=== PATIENT | female | born 1935 | race African-American/Black ===

== ENCOUNTER 2016-12-29 12:06 | Inpatient (IN) | payer MEDICARE ==
[~2016-12-29] VITALS: Ht 152.4 cm; Wt 46.5 kg
[2016-12-29 12:30] VITALS: BP 118/43
[2016-12-29] MEDS ORDERED: GUAIFENESIN 200MG/10ML SUGAR FREE UDC PO PRN ×2 (14:00→18:45)
[2016-12-29] MEDS ORDERED: ACETAMINOPHEN 325MG TABLET PO PRN (14:00)
[2016-12-29 16:00] VITALS: BP 124/44
[2016-12-29] MEDS: IPRATROPIUM/ALBUTEROL 0.5-3(2.5)MG/3ML NEB HHN SCH ×2 (16:34→21:36)
[2016-12-29] MEDS: MULTIVITAMINS,THER W-MINERALS TABLET PO SCH (17:39)
[2016-12-29] MEDS: CEFTRIAXONE 1 G PREMIX 50 ML IV SCH (17:39)
[2016-12-29 17:47] LABS: BASOPHILS % 0.8 % (0.0-2.0); EOSINOPHILS % 1.2 % (0.0-5.0); HEMATOCRIT. 26.3 % (36.0-48.0); HEMOGLOBIN. 8.3 g/dL (12.0-16.0); LYMPHOCYTES % 12.4 % (20.0-50.0); MEAN CORPUSCULAR HEMOGLOBIN 24.5 pg (28.0-32.0); MEAN CORPUSCULAR VOLUME 77.9 fL (81.0-99.0); MONOCYTES % 8.9 % (2.0-8.0); NEUTROPHILS % 76.7 % (40.0-76.0); PLATELET 374 x1000/uL (130-400); RED BLOOD CELL COUNT 3.37 mill/uL (4.2-5.4); RED CELL DISTRIBUTION WIDTH 17.9 % (11.6-14.6)
[2016-12-29 17:53] LABS: INR 1.1; PROTHROMBIN TIME 11.2 sec
[2016-12-29 18:08] LABS: CARBON DIOXIDE 21 mEq/L (21-32); CHLORIDE 110 mEq/L (98-107)
[2016-12-29] MEDS: AZITHROMYCIN 500 MG in DEXT 5% WATER 250 ML IV SCH (18:43)
[2016-12-29 19:10] LABS: TOTAL IRON BINDING CAPACITY 167 ug/dL (250-450)
[2016-12-29 20:00] VITALS: BP 110/54
[2016-12-29] MEDS: MIRTAZAPINE 15MG TABLET PO SCH (21:50)
[2016-12-29] MEDS: MEMANTINE HCL 10MG TABLET PO SCH (21:50)
[2016-12-29] MEDS: SODIUM CHLORIDE 0.45% 1,000 ML IV SCH (22:04)
[2016-12-30] VITALS (8 sets, daily range): BP systolic 110–152; BP diastolic 40–59
[2016-12-30] MEDS: IPRATROPIUM/ALBUTEROL 0.5-3(2.5)MG/3ML NEB HHN SCH ×6 (00:58→21:11)
[2016-12-30 06:53] LABS: BASOPHILS % 0.2 % (0.0-2.0); EOSINOPHILS % 1.2 % (0.0-5.0); HEMATOCRIT. 23.4 % (36.0-48.0); HEMOGLOBIN. 7.3 g/dL (12.0-16.0); LYMPHOCYTES % 13.4 % (20.0-50.0); MEAN CORPUSCULAR HEMOGLOBIN 24.5 pg (28.0-32.0); MEAN PLATELET VOLUME 8.8 fl (7.4-10.4); MONOCYTES % 10.4 % (2.0-8.0); NEUTROPHILS % 74.8 % (40.0-76.0); PLATELET 346 x1000/uL (130-400); RED BLOOD CELL COUNT 2.99 mill/uL (4.2-5.4); RED CELL DISTRIBUTION WIDTH 17.4 % (11.6-14.6)
[2016-12-30 07:56] LABS: BG BASE EXCESS -5.3 mmol/L (-2.0-2.0); BG CARBOXYHEMOGLOBIN 0.8 % (0.5-1.5); BG DEOXYHEMOGLOBIN 12.9 % (0.0-5.0); BG FRACTION INSPIRED OXYGEN 21; BG HCO3 ACT 20.1 mmol/L (22.0-26.0); BG METHEMOGLOBIN 0.4 % (0.0-1.5); BG OXYGEN SATURATION 86.9 % (92.0-98.5); BG OXYHEMOGLOBIN 85.9 % (94.0-97.0); BG PH 7.331 (7.350-7.450); BG PO2 54.8 mmHg (75.0-100.0); BG SAMPLE SITE RIGHT BRACHIAL; BG TOTAL HEMOGLOBIN 8.4 g/dL (12.0-18.0); BG VENT MODE ROOM AIR
[2016-12-30] MEDS ORDERED: AMLO1TAB12 PO ×2 (08:16→08:30)
[2016-12-30] MEDS ORDERED: MONT5TAB11 PO (08:30)
[2016-12-30] MEDS ORDERED: ASPI-1159 PO (08:30)
[2016-12-30] MEDS ORDERED: MEMA10TA11 PO (08:30)
[2016-12-30] MEDS ORDERED: MIRT-91 PO (08:30)
[2016-12-30] MEDS ORDERED: GUAI120015 PO (08:30)
[2016-12-30] MEDS ORDERED: MAALOX (08:30)
[2016-12-30] MEDS ORDERED: ACET-2178 PO (08:30)
[2016-12-30] MEDS ORDERED: AZIT250T6 PO (08:30)
[2016-12-30] MEDS ORDERED: BENZ100C86 PO (08:30)
[2016-12-30] MEDS ORDERED: MULT-348 PO (08:30)
[2016-12-30] MEDS ORDERED: ENOXAPARIN 30MG/0.3ML SYR SUBCUT SCH (09:00)
[2016-12-30 09:15] LABS: HEMATOCRIT 25.2 % (36.0-48.0); HEMOGLOBIN 7.9 g/dL (12.0-16.0)
[2016-12-30 09:31] LABS: CLARITY URINE CLOUDY (CLEAR); COLOR URINE YELLOW (YELLOW); GLUCOSE URINE NEGATIVE (NEGATIVE); KETONES URINE NEGATIVE (NEGATIVE); LEUKOCYTE ESTERASE URINE 2+ (NEGATIVE); NITRITE URINE NEGATIVE (NEGATIVE); OCCULT BLOOD URINE NEGATIVE (NEGATIVE); PROTEIN URINE TRACE (NEGATIVE); SPECIFIC GRAVITY URINE 1.017 (1.005-1.030); UROBILINOGEN URINE 0.2 E.U./dL (0.2-1.0)
[2016-12-30] MEDS: DOCUSATE SODIUM 250MG CAPSULE PO SCH (10:21)
[2016-12-30] MEDS: MULTIVITAMINS,THER W-MINERALS TABLET PO SCH (10:21)
[2016-12-30] MEDS: MEMANTINE HCL 10MG TABLET PO SCH ×2 (10:21→20:57)
[2016-12-30] MEDS: DONEPEZIL HCL 10MG TABLET PO SCH (10:21)
[2016-12-30] MEDS: AMLODIPINE 10MG TABLET PO SCH (10:23)
[2016-12-30] MEDS: PANTOPRAZOLE SODIUM 40 MG/VIAL IV SCH (10:28)
[2016-12-30] MEDS ORDERED: CEFTRIAXONE 1 G PREMIX 50 ML IV SCH (14:30)
[2016-12-30] MEDS: CEFTRIAXONE 1 G PREMIX 50 ML IV SCH (16:14)
[2016-12-30] MEDS: AZITHROMYCIN 500 MG in DEXT 5% WATER 250 ML IV SCH (16:22)
[2016-12-30] MEDS ORDERED: MONTELUKAST SODIUM 10MG TABLET PO SCH (17:00)
[2016-12-30 17:22] LABS: VITAMIN B12 SERUM 558 pg/mL (211-911)
[2016-12-30 17:26] LABS: FOLIC ACID (FOLATE) SERUM > 20.00 ng/mL (>5.38)
[2016-12-30 17:46] LABS: FERRITIN 291 ng/mL (10-291)
[2016-12-30] MEDS: SODIUM CHLORIDE 0.45% 1,000 ML IV SCH (19:07)
[2016-12-30] MEDS: MIRTAZAPINE 15MG TABLET PO SCH (20:57)
[2016-12-30] MEDS: GUAIFENESIN 600MG ER TABLET PO SCH (21:01)
[2016-12-31] VITALS (13 sets, daily range): BP systolic 99–153; BP diastolic 39–69
[2016-12-31] MEDS: IPRATROPIUM/ALBUTEROL 0.5-3(2.5)MG/3ML NEB HHN SCH ×7 (02:16→23:48)
[2016-12-31 06:59] LABS: BASOPHILS % 0.3 % (0.0-2.0); HEMOGLOBIN. 10.1 g/dL (12.0-16.0); LYMPHOCYTES % 9.2 % (20.0-50.0); MEAN CORPUSCULAR HEMOGLOBIN 25.6 pg (28.0-32.0); MEAN CORPUSCULAR VOLUME 78.9 fL (81.0-99.0); MEAN PLATELET VOLUME 8.7 fl (7.4-10.4); MONOCYTES % 10.1 % (2.0-8.0); NEUTROPHILS % 79.4 % (40.0-76.0); PLATELET 298 x1000/uL (130-400); RED BLOOD CELL COUNT 3.93 mill/uL (4.2-5.4); RED CELL DISTRIBUTION WIDTH 16.7 % (11.6-14.6)
[2016-12-31] MEDS: PANTOPRAZOLE SODIUM 40 MG/VIAL IV SCH (08:40)
[2016-12-31] MEDS: DOCUSATE SODIUM 250MG CAPSULE PO SCH (08:50)
[2016-12-31] MEDS: MEMANTINE HCL 10MG TABLET PO SCH ×2 (08:50→22:12)
[2016-12-31] MEDS: DONEPEZIL HCL 10MG TABLET PO SCH (08:50)
[2016-12-31] MEDS: MULTIVITAMINS,THER W-MINERALS TABLET PO SCH (08:51)
[2016-12-31] MEDS: GUAIFENESIN 600MG ER TABLET PO SCH ×2 (08:51→22:12)
[2016-12-31] MEDS: AMLODIPINE 10MG TABLET PO SCH (09:00)
[2016-12-31 10:29] LABS: HEMATOCRIT 34.6 % (36.0-48.0)
[2016-12-31] MEDS: QUETIAPINE FUMARATE 25MG TABLET PO SCH (11:57)
[2016-12-31] MEDS ORDERED: FLUCONAZOLE 400MG/200ML BAG 200 ML IV NR (14:00)
[2016-12-31] MEDS: CEFTRIAXONE 1 G PREMIX 50 ML IV SCH (15:15)
[2016-12-31] MEDS ORDERED: AZITHROMYCIN 500 MG TABLET PO SCH (16:00)
[2016-12-31] MEDS: MIRTAZAPINE 15MG TABLET PO SCH (22:12)
[2017-01-01] VITALS: BP_SYST 117; BP_SYST 151; BP_DIAS 58; BP_DIAS 65
[2017-01-01] MEDS: IPRATROPIUM/ALBUTEROL 0.5-3(2.5)MG/3ML NEB HHN SCH ×4 (03:22→21:12)
[2017-01-01 04:00] VITALS: BP 152/65
[2017-01-01] MEDS: SODIUM CHLORIDE 0.45% 1,000 ML IV SCH (05:30)
[2017-01-01 06:59] LABS: HEMATOCRIT. 37.1 % (36.0-48.0); MEAN CORPUSCULAR HEMOGLOBIN 25.7 pg (28.0-32.0); MEAN CORPUSCULAR VOLUME 79.5 fL (81.0-99.0); MEAN PLATELET VOLUME 9.2 fl (7.4-10.4); PLATELET 332 x1000/uL (130-400); RED BLOOD CELL COUNT 4.67 mill/uL (4.2-5.4)
[2017-01-01] MEDS: MEMANTINE HCL 10MG TABLET PO SCH ×2 (08:53→21:00)
[2017-01-01] MEDS: FAMOTIDINE 20MG TABLET PO SCH (08:53)
[2017-01-01] MEDS: AMLODIPINE 10MG TABLET PO SCH (08:54)
[2017-01-01] MEDS: DONEPEZIL HCL 10MG TABLET PO SCH (08:54)
[2017-01-01] MEDS: QUETIAPINE FUMARATE 25MG TABLET PO SCH (08:55)
[2017-01-01] MEDS: GUAIFENESIN 600MG ER TABLET PO SCH ×2 (08:55→21:00)
[2017-01-01] MEDS: DOCUSATE SODIUM 250MG CAPSULE PO SCH (08:56)
[2017-01-01] MEDS ORDERED: DIATR MEGLU/DIATRIZOATE SOLN 30ML PO SCH (10:15)
[2017-01-01] MEDS ORDERED: SODIUM CHLORIDE 0.45% 1,000 ML IV SCH (10:15)
[2017-01-01] MEDS ORDERED: FUROSEMIDE 20MG/2ML VIAL IVP SCH (10:45)
[2017-01-01 11:57] LABS: PLATELET ESTIMATE NORMAL
[2017-01-01] MEDS ORDERED: FLUCONAZOLE 200 MG/100ML BAG 100 ML IV SCH (14:00)
[2017-01-01 16:00] VITALS: BP 137/65
[2017-01-01] MEDS: LEVOFLOXACIN 500MG PREMIX 100 ML IV SCH (16:36)
[2017-01-01] MEDS: PIPERACILLIN/TAZOBACTAM 3.375 G in DEXT 5% WATER 100 ML IV SCH (17:23)
[2017-01-01 20:00] VITALS: BP 125/60
[2017-01-01 20:42] VITALS: BP 125/60
[2017-01-01] MEDS: MIRTAZAPINE 15MG TABLET PO SCH (21:00)
[2017-01-02] VITALS: BP 151/65
[2017-01-02] MEDS: IPRATROPIUM/ALBUTEROL 0.5-3(2.5)MG/3ML NEB HHN SCH ×5 (01:05→20:30)
[2017-01-02 04:00] VITALS: BP 112/61
[2017-01-02] MEDS: PIPERACILLIN/TAZOBACTAM 3.375 G in DEXT 5% WATER 100 ML IV SCH ×3 (05:40)
[2017-01-02 07:27] LABS: BASOPHILS % 0.4 % (0.0-2.0); EOSINOPHILS % 0.7 % (0.0-5.0); HEMATOCRIT. 35.7 % (36.0-48.0); HEMOGLOBIN. 11.5 g/dL (12.0-16.0); LYMPHOCYTES % 7.9 % (20.0-50.0); MEAN CORPUSCULAR HEMOGLOBIN 25.7 pg (28.0-32.0); MEAN CORPUSCULAR VOLUME 79.8 fL (81.0-99.0); MEAN PLATELET VOLUME 9.2 fl (7.4-10.4); MONOCYTES % 9.2 % (2.0-8.0); NEUTROPHILS % 81.8 % (40.0-76.0); PLATELET 311 x1000/uL (130-400); RED BLOOD CELL COUNT 4.47 mill/uL (4.2-5.4)
[2017-01-02 08:00] VITALS: BP 124/49
[2017-01-02] MEDS: DEXT 5%/0.45% NACL 1000ML 1,000 ML IV SCH ×2 (08:49→23:31)
[2017-01-02] MEDS: AMLODIPINE 10MG TABLET PO SCH (09:00)
[2017-01-02] MEDS ORDERED: LACTULOSE 20G/30ML UDC PO SCH (09:15)
[2017-01-02] MEDS: FAMOTIDINE 20MG TABLET PO SCH (10:01)
[2017-01-02] MEDS: QUETIAPINE FUMARATE 25MG TABLET PO SCH (10:01)
[2017-01-02] MEDS: DONEPEZIL HCL 10MG TABLET PO SCH (10:01)
[2017-01-02] MEDS: GUAIFENESIN 600MG ER TABLET PO SCH ×2 (10:02→21:54)
[2017-01-02] MEDS: MEMANTINE HCL 10MG TABLET PO SCH ×2 (10:02→21:53)
[2017-01-02] MEDS: DOCUSATE SODIUM 250MG CAPSULE PO SCH (10:45)
[2017-01-02] MEDS ORDERED: PIPERACILLIN/TAZ 3.375G PREMIX 50 ML IV SCH (12:00)
[2017-01-02 12:01] VITALS: BP 97/43
[2017-01-02] MEDS: SULFACETAMIDE SODIUM 10% OPHTH DROPS 15ML BOTHEYE SCH ×3 (12:53→21:53)
[2017-01-02 15:58] VITALS: BP 102/44
[2017-01-02 16:49] LABS: CARCINO EMBRYONIC ANTIGEN 87.6 ng/ml
[2017-01-02 17:15] LABS: PROSTRATE SPECIFIC AG TOTAL 0.02 ng/mL
[2017-01-02] MEDS: PIPERACILLIN/TAZ 2.25G PREMIX 50 ML IV SCH ×2 (18:08→23:30)
[2017-01-02 20:00] VITALS: BP 118/49
[2017-01-02] MEDS: MIRTAZAPINE 15MG TABLET PO SCH (21:53)
[2017-01-03] VITALS: BP 112/60
[2017-01-03] MEDS: IPRATROPIUM/ALBUTEROL 0.5-3(2.5)MG/3ML NEB HHN SCH ×6 (01:26→23:47)
[2017-01-03 04:00] VITALS: BP 102/49
[2017-01-03] MEDS: PIPERACILLIN/TAZ 2.25G PREMIX 50 ML IV SCH ×3 (05:00→19:37)
[2017-01-03 06:54] LABS: BASOPHILS % 0.3 % (0.0-2.0); EOSINOPHILS % 1.7 % (0.0-5.0); HEMATOCRIT. 32.5 % (36.0-48.0); HEMOGLOBIN. 10.4 g/dL (12.0-16.0); LYMPHOCYTES % 7.4 % (20.0-50.0); MEAN CORPUSCULAR HEMOGLOBIN 25.5 pg (28.0-32.0); MEAN CORPUSCULAR VOLUME 79.8 fL (81.0-99.0); MEAN PLATELET VOLUME 9.1 fl (7.4-10.4); MONOCYTES % 11.6 % (2.0-8.0); PLATELET 282 x1000/uL (130-400); RED BLOOD CELL COUNT 4.07 mill/uL (4.2-5.4); RED CELL DISTRIBUTION WIDTH 17.3 % (11.6-14.6)
[2017-01-03 08:00] VITALS: BP 112/48
[2017-01-03] MEDS: SULFACETAMIDE SODIUM 10% OPHTH DROPS 15ML BOTHEYE SCH ×4 (08:49→20:28)
[2017-01-03 08:50] LABS: IMMUNOGLOBULIN A 381 mg/dL (64-422); IMMUNOGLOBULIN G 1912 mg/dL (700-1600); IMMUNOGLOBULIN M 44 mg/dL (26-217)
[2017-01-03] MEDS: DONEPEZIL HCL 10MG TABLET PO SCH (08:50)
[2017-01-03] MEDS: FAMOTIDINE 20MG TABLET PO SCH (08:50)
[2017-01-03] MEDS: GUAIFENESIN 600MG ER TABLET PO SCH ×2 (08:50→20:20)
[2017-01-03] MEDS: MEMANTINE HCL 10MG TABLET PO SCH ×2 (08:50→20:20)
[2017-01-03] MEDS: QUETIAPINE FUMARATE 25MG TABLET PO SCH (08:51)
[2017-01-03] MEDS: LEVOFLOXACIN 500MG PREMIX 100 ML IV SCH (08:52)
[2017-01-03] MEDS: AMLODIPINE 10MG TABLET PO SCH (08:53)
[2017-01-03] MEDS: DOCUSATE SODIUM 250MG CAPSULE PO SCH (08:53)
[2017-01-03 12:00] VITALS: BP 97/39
[2017-01-03] MEDS: DEXT 5%/0.9% NACL 1,000 ML IV SCH (12:31)
[2017-01-03] MEDS ORDERED: MAGNESIUM 2 G PREMIX 50 ML IV SCH (14:00)
[2017-01-03] MEDS ORDERED: SODIUM CHLORIDE 0.9% 10ML VIAL ONE (14:23)
[2017-01-03] MEDS ORDERED: SODIUM BICARBONATE 4% (2.4MEQ) 5ML VIAL IV ONE (14:23)
[2017-01-03] MEDS ORDERED: LIDOCAINE HCL 1% 20ML VIAL (Pyxis) INJ ONE (14:23)
[2017-01-03 16:00] VITALS: BP 116/43
[2017-01-03 20:00] VITALS: BP_SYST 112; BP_SYST 124; BP_DIAS 51; BP_DIAS 63
[2017-01-03] MEDS: MIRTAZAPINE 15MG TABLET PO SCH (20:20)
[2017-01-04] VITALS: BP 124/63
[2017-01-04] MEDS: PIPERACILLIN/TAZ 2.25G PREMIX 50 ML IV SCH ×4 (00:09→19:10)
[2017-01-04] MEDS: IPRATROPIUM/ALBUTEROL 0.5-3(2.5)MG/3ML NEB HHN SCH ×5 (03:37→20:44)
[2017-01-04 04:00] VITALS: BP 126/60
[2017-01-04] MEDS: DEXT 5%/0.9% NACL 1,000 ML IV SCH ×3 (05:40→22:24)
[2017-01-04 06:23] LABS: HEMATOCRIT. 30.9 % (36.0-48.0); HEMOGLOBIN. 10.1 g/dL (12.0-16.0); MEAN CORPUSCULAR VOLUME 79.9 fL (81.0-99.0); MEAN PLATELET VOLUME 8.9 fl (7.4-10.4); PLATELET 268 x1000/uL (130-400); RED BLOOD CELL COUNT 3.87 mill/uL (4.2-5.4); RED CELL DISTRIBUTION WIDTH 17.2 % (11.6-14.6)
[2017-01-04 08:00] VITALS: BP 117/53
[2017-01-04 09:07] LABS: PLATELET ESTIMATE NORMAL
[2017-01-04] MEDS: DONEPEZIL HCL 10MG TABLET PO SCH (09:08)
[2017-01-04] MEDS: DOCUSATE SODIUM 250MG CAPSULE PO SCH (09:09)
[2017-01-04] MEDS: MEMANTINE HCL 10MG TABLET PO SCH ×2 (09:09→20:07)
[2017-01-04] MEDS: FAMOTIDINE 20MG TABLET PO SCH (09:09)
[2017-01-04] MEDS: QUETIAPINE FUMARATE 25MG TABLET PO SCH (09:09)
[2017-01-04] MEDS: GUAIFENESIN 600MG ER TABLET PO SCH ×2 (09:09→20:07)
[2017-01-04] MEDS: SULFACETAMIDE SODIUM 10% OPHTH DROPS 15ML BOTHEYE SCH ×4 (09:11→20:07)
[2017-01-04] MEDS: AMLODIPINE 10MG TABLET PO SCH (09:23)
[2017-01-04 12:00] VITALS: BP 86/40
[2017-01-04 13:11] LABS: HGB A 97.7 % (94.0-98.0); HGB A2 2.3 % (0.7-3.1); HGB SOLUBILITY Negative (Negative)
[2017-01-04] MEDS ORDERED: SODIUM BICARBONATE 4% (2.4MEQ) 5ML VIAL IV ONE (14:27)
[2017-01-04 16:00] VITALS: BP 118/53
[2017-01-04 20:00] VITALS: BP 115/58
[2017-01-04] MEDS: MIRTAZAPINE 15MG TABLET PO SCH (20:07)
[2017-01-05] VITALS: BP 112/58
[2017-01-05] MEDS: PIPERACILLIN/TAZ 2.25G PREMIX 50 ML IV SCH ×4 (00:16→17:31)
[2017-01-05] MEDS: IPRATROPIUM/ALBUTEROL 0.5-3(2.5)MG/3ML NEB HHN SCH ×7 (00:36→23:59)
[2017-01-05 04:00] VITALS: BP 131/65
[2017-01-05 07:16] LABS: HEMATOCRIT. 25.3 % (36.0-48.0); MEAN CORPUSCULAR HEMOGLOBIN 25.6 pg (28.0-32.0); MEAN CORPUSCULAR VOLUME 80.5 fL (81.0-99.0); MEAN PLATELET VOLUME 9.3 fl (7.4-10.4); PLATELET 288 x1000/uL (130-400); RED BLOOD CELL COUNT 3.14 mill/uL (4.2-5.4); RED CELL DISTRIBUTION WIDTH 17.1 % (11.6-14.6)
[2017-01-05 08:00] VITALS: BP 118/57
[2017-01-05] MEDS: SULFACETAMIDE SODIUM 10% OPHTH DROPS 15ML BOTHEYE SCH ×4 (08:53→21:50)
[2017-01-05] MEDS: LEVOFLOXACIN 500MG PREMIX 100 ML IV SCH (08:54)
[2017-01-05] MEDS: QUETIAPINE FUMARATE 25MG TABLET PO SCH (08:55)
[2017-01-05] MEDS: DOCUSATE SODIUM 250MG CAPSULE PO SCH ×2 (08:55→09:18)
[2017-01-05] MEDS: MEMANTINE HCL 10MG TABLET PO SCH ×3 (08:55→21:36)
[2017-01-05] MEDS: FAMOTIDINE 20MG TABLET PO SCH (08:55)
[2017-01-05] MEDS: AMLODIPINE 10MG TABLET PO SCH ×2 (08:55→09:18)
[2017-01-05] MEDS: DONEPEZIL HCL 10MG TABLET PO SCH (08:55)
[2017-01-05] MEDS: GUAIFENESIN 600MG ER TABLET PO SCH ×3 (08:55→21:36)
[2017-01-05 11:04] LABS: PLATELET ESTIMATE NORMAL
[2017-01-05 11:18] LABS: HEMATOCRIT 27.1 % (36.0-48.0); HEMOGLOBIN 8.4 g/dL (12.0-16.0)
[2017-01-05 12:00] VITALS: BP 127/59
[2017-01-05 16:00] VITALS: BP 120/85
[2017-01-05] MEDS: DEXT 5%/0.9% NACL 1,000 ML IV SCH (16:49)
[2017-01-05 20:00] VITALS: BP 142/61
[2017-01-05] MEDS: MIRTAZAPINE 15MG TABLET PO SCH (21:37)
[2017-01-06] VITALS (7 sets, daily range): BP systolic 115–149; BP diastolic 56–69
[2017-01-06] MEDS: PIPERACILLIN/TAZ 2.25G PREMIX 50 ML IV SCH ×4 (00:34→18:52)
[2017-01-06] MEDS: IPRATROPIUM/ALBUTEROL 0.5-3(2.5)MG/3ML NEB HHN SCH ×5 (04:20→21:21)
[2017-01-06] MEDS: SULFACETAMIDE SODIUM 10% OPHTH DROPS 15ML BOTHEYE SCH ×4 (09:45→21:58)
[2017-01-06] MEDS: QUETIAPINE FUMARATE 25MG TABLET PO SCH (09:45)
[2017-01-06] MEDS: DOCUSATE SODIUM 250MG CAPSULE PO SCH (09:45)
[2017-01-06] MEDS: DONEPEZIL HCL 10MG TABLET PO SCH (09:45)
[2017-01-06] MEDS: AMLODIPINE 10MG TABLET PO SCH (09:46)
[2017-01-06] MEDS: FAMOTIDINE 20MG TABLET PO SCH (09:46)
[2017-01-06] MEDS: MEMANTINE HCL 10MG TABLET PO SCH ×2 (09:46→21:58)
[2017-01-06] MEDS: GUAIFENESIN 600MG ER TABLET PO SCH ×2 (10:08→21:58)
[2017-01-06] MEDS: DILTIAZEM HCL 30MG TABLET NG SCH ×2 (12:36→17:53)
[2017-01-06 17:36] LABS: BG BASE EXCESS -6.3 mmol/L (-2.0-2.0); BG DEOXYHEMOGLOBIN 1.5 % (0.0-5.0); BG FRACTION INSPIRED OXYGEN 100; BG HCO3 ACT 22.4 mmol/L (22.0-26.0); BG METHEMOGLOBIN 0.7 % (0.0-1.5); BG OXYGEN SATURATION 98.5 % (92.0-98.5); BG OXYHEMOGLOBIN 97.8 % (94.0-97.0); BG PCO2 63.5 mmHg (35.0-45.0); BG PH 7.166 (7.350-7.450); BG PO2 145.6 mmHg (75.0-100.0); BG SAMPLE SITE RIGHT RADIAL; BG VENT MODE MASK - NRB
[2017-01-06 21:40] LABS: BG BASE EXCESS -9.2 mmol/L (-2.0-2.0); BG CARBOXYHEMOGLOBIN 0.3 % (0.5-1.5); BG DEOXYHEMOGLOBIN 2.2 % (0.0-5.0); BG FRACTION INSPIRED OXYGEN 100; BG HCO3 ACT 18.4 mmol/L (22.0-26.0); BG METHEMOGLOBIN 0.4 % (0.0-1.5); BG OXYGEN SATURATION 97.8 % (92.0-98.5); BG OXYHEMOGLOBIN 97.1 % (94.0-97.0); BG PCO2 48.6 mmHg (35.0-45.0); BG PH 7.197 (7.350-7.450); BG PO2 110.4 mmHg (75.0-100.0); BG SAMPLE SITE LEFT BRACHIAL; BG TIDAL VOLUME(mL) 143 mL; BG TOTAL HEMOGLOBIN 9.3 g/dL (12.0-18.0); BG VENT MODE MASK - BIPAP; BG VENT RATE 22 set
[2017-01-06] MEDS: MIRTAZAPINE 15MG TABLET PO SCH (21:58)
[2017-01-07] VITALS (12 sets, daily range): BP systolic 110–142; BP diastolic 41–60
[2017-01-07] MEDS: PIPERACILLIN/TAZ 2.25G PREMIX 50 ML IV SCH ×4 (00:25→18:08)
[2017-01-07] MEDS: DILTIAZEM HCL 30MG TABLET NG SCH ×4 (00:25→18:08)
[2017-01-07] MEDS: IPRATROPIUM/ALBUTEROL 0.5-3(2.5)MG/3ML NEB HHN SCH ×6 (01:27→20:18)
[2017-01-07 06:37] LABS: HEMATOCRIT. 27.3 % (36.0-48.0); HEMOGLOBIN. 8.4 g/dL (12.0-16.0); MEAN CORPUSCULAR HEMOGLOBIN 25.3 pg (28.0-32.0); MEAN CORPUSCULAR VOLUME 82.3 fL (81.0-99.0); MEAN PLATELET VOLUME 8.7 fl (7.4-10.4); PLATELET 338 x1000/uL (130-400); RED BLOOD CELL COUNT 3.31 mill/uL (4.2-5.4); RED CELL DISTRIBUTION WIDTH 17.3 % (11.6-14.6)
[2017-01-07 06:38] LABS: INR 1.1; PARTIAL THROMBOPLASTIN TIME 34.4 sec (24.0-34.0); PROTHROMBIN TIME 11.2 sec
[2017-01-07 08:18] LABS: BG BASE EXCESS -5.7 mmol/L (-2.0-2.0); BG CARBOXYHEMOGLOBIN 0.3 % (0.5-1.5); BG DEOXYHEMOGLOBIN 1.5 % (0.0-5.0); BG FRACTION INSPIRED OXYGEN 100; BG HCO3 ACT 23.1 mmol/L (22.0-26.0); BG METHEMOGLOBIN 0.3 % (0.0-1.5); BG OXYGEN SATURATION 98.5 % (92.0-98.5); BG OXYHEMOGLOBIN 97.9 % (94.0-97.0); BG PCO2 65.3 mmHg (35.0-45.0); BG PH 7.167 (7.350-7.450); BG PO2 138.2 mmHg (75.0-100.0); BG PRESSURE SUPPORT 7; BG SAMPLE SITE LEFT BRACHIAL; BG TOTAL HEMOGLOBIN 9.1 g/dL (12.0-18.0); BG VENT MODE MASK - BIPAP; BG VENT RATE 24 set
[2017-01-07] MEDS: DONEPEZIL HCL 10MG TABLET PO SCH (08:36)
[2017-01-07] MEDS: FAMOTIDINE 20MG TABLET PO SCH (08:37)
[2017-01-07] MEDS: DOCUSATE SODIUM 250MG CAPSULE PO SCH (08:37)
[2017-01-07] MEDS: AMLODIPINE 10MG TABLET PO SCH (08:37)
[2017-01-07] MEDS: MEMANTINE HCL 10MG TABLET PO SCH ×2 (08:37→22:42)
[2017-01-07] MEDS: QUETIAPINE FUMARATE 25MG TABLET PO SCH (08:37)
[2017-01-07] MEDS: GUAIFENESIN 600MG ER TABLET PO SCH ×2 (08:37→21:00)
[2017-01-07] MEDS: LEVOFLOXACIN 500MG PREMIX 100 ML IV SCH (08:47)
[2017-01-07] MEDS: SULFACETAMIDE SODIUM 10% OPHTH DROPS 15ML BOTHEYE SCH ×4 (08:47→22:41)
[2017-01-07] MEDS ORDERED: SODIUM BICARBONATE 4.2% 5 MEQ/10 ML DISP.SYRIN IV ONE (09:26)
[2017-01-07] MEDS ORDERED: VANCOMYCIN 1 G PREMIX 200 ML IV SCH (13:15)
[2017-01-07] MEDS ORDERED: VANCOMYCIN 750 MG PREMIX 150 ML IV NR (15:00)
[2017-01-07 15:39] LABS: PLATELET ESTIMATE NORMAL
[2017-01-07] MEDS: MIRTAZAPINE 15MG TABLET PO SCH (22:41)
[2017-01-08] VITALS (8 sets, daily range): BP systolic 63–137; BP diastolic 22–60
[2017-01-08] MEDS: IPRATROPIUM/ALBUTEROL 0.5-3(2.5)MG/3ML NEB HHN SCH ×2 (00:39→04:46)
[2017-01-08] MEDS: DILTIAZEM HCL 30MG TABLET NG SCH ×2 (01:18→06:40)
[2017-01-08] MEDS: PIPERACILLIN/TAZ 2.25G PREMIX 50 ML IV SCH ×2 (01:18→06:40)
[2017-01-08 07:28] LABS: HEMATOCRIT. 29.5 % (36.0-48.0); HEMOGLOBIN. 9.1 g/dL (12.0-16.0); MEAN CORPUSCULAR HEMOGLOBIN 25.5 pg (28.0-32.0); MEAN PLATELET VOLUME 8.7 fl (7.4-10.4); PLATELET 403 x1000/uL (130-400); RED BLOOD CELL COUNT 3.55 mill/uL (4.2-5.4); RED CELL DISTRIBUTION WIDTH 17.7 % (11.6-14.6)
[2017-01-08] MEDS ORDERED: NOREPINEPHRINE 4 MG in DEXT 5% WATER 246 ML IV PRN (08:15)
[2017-01-08 10:20] LABS: PLATELET ESTIMATE NORMAL
[2017-01-08] MEDS ORDERED: VANCOMYCIN 500 MG PREMIX 100 ML IV SCH (14:30)
[2017-01-09] MEDS ORDERED: LEVOFLOXACIN 500MG PREMIX 100 ML IV SCH (09:00)
== END 2017-01-08 13:51 | disposition expired | DRG 853 ==
LOC: 6WST 12:06 → 6EST 12:19 → 5WST 01-01 14:27 → 5EST 01-06 17:17
PROVIDERS: ADMIT Internal Medicine Geriatric Medicine; ATTEND Internal Medicine Geriatric Medicine
PROC: 30253N1 (ICD-10-PCS; principal; 2016-12-30)
PROC: 0Q933ZX Drainage of Left Pelvic Bone, Percutaneous Approach, Diagnostic (ICD-10-PCS; 2017-01-03)
PROC: 0W9B3ZZ Drainage of Left Pleural Cavity, Percutaneous Approach (ICD-10-PCS; 2017-01-04)
PROC: BB4BZZZ Ultrasonography of Pleura (ICD-10-PCS; 2017-01-04)
PROC: 5A09457 Assistance with Respiratory Ventilation, 24-96 Consecutive Hours, Continuous Positive Airway Pressure (ICD-10-PCS; 2017-01-06)
DX: A41.52 Sepsis due to Pseudomonas (principal); G92 Toxic encephalopathy; N17.0 Acute kidney failure with tubular necrosis; E43 Unspecified severe protein-calorie malnutrition; J15.1 Pneumonia due to Pseudomonas; J86.9 Pyothorax without fistula; J96.01 Acute respiratory failure with hypoxia; B49 Unspecified mycosis; C34.90 Malignant neoplasm of unspecified part of unspecified bronchus or lung; C41.4 Malignant neoplasm of pelvic bones, sacrum and coccyx; C79.51 Secondary malignant neoplasm of bone; D68.59 Other primary thrombophilia; E87.0 Hyperosmolality and hypernatremia; E87.1 Hypo-osmolality and hyponatremia; E87.2 Acidosis; I31.3 Pericardial effusion (noninflammatory); J91.0 Malignant pleural effusion; J44.0 Chronic obstructive pulmonary disease with (acute) lower respiratory infection; J98.11 Atelectasis; N39.0 Urinary tract infection, site not specified; R47.01 Aphasia; R64 Cachexia; D50.9 Iron deficiency anemia, unspecified; I10 Essential (primary) hypertension; M19.90 Unspecified osteoarthritis, unspecified site; E16.2 Hypoglycemia, unspecified; E27.8 Other specified disorders of adrenal gland; E83.42 Hypomagnesemia; E86.0 Dehydration; E87.5 Hyperkalemia; F02.80 Dementia in other diseases classified elsewhere, unspecified severity, without behavioral disturbance, psychotic disturbance, mood disturbance, and anxiety; G30.9 Alzheimer's disease, unspecified; H01.003 Unspecified blepharitis right eye, unspecified eyelid; I12.9 Hypertensive chronic kidney disease with stage 1 through stage 4 chronic kidney disease, or unspecified chronic kidney disease; I27.2 Other secondary pulmonary hypertension; I35.0 Nonrheumatic aortic (valve) stenosis; I77.819 Aortic ectasia, unspecified site; K42.9 Umbilical hernia without obstruction or gangrene; K40.90 Unilateral inguinal hernia, without obstruction or gangrene, not specified as recurrent; K75.3 Granulomatous hepatitis, not elsewhere classified; L89.152 Pressure ulcer of sacral region, stage 2; R13.10 Dysphagia, unspecified; N18.9 Chronic kidney disease, unspecified; R62.7 Adult failure to thrive; R47.1 Dysarthria and anarthria; Z68.20 Body mass index [BMI] 20.0-20.9, adult; Z66 Do not resuscitate; Z51.5 Encounter for palliative care
CPT/HCPCS: 32555; 36415; 36600; 71010; 71250; 74176; 76770; 77012; 80048; 80053; 81001; 82105; 82270; 82375; 82378; 82607; 82728; 82746; 82784; 82805; 82962; 83021; 83036; 83540; 83550; 83615; 83735; 83880; 84153; 84157; 85014; 85018; 85025; 85610; 85660; 85730; 86334; 86850; 86900; 86920; 87040; 87070; 87077; 87086; 87186; 87205; 88108; 88172; 88173; 88312; 89050; 92610; 93005; 93306; 93970; 94640; 94660; 94664; 94667; 97162; 97164; 97166; 97530; A4216; C1893; C9113; J0456; J0696; J1450; J1940; J1956; J2543; J3370; J3475; J3490; J7030; J7040; J7042; J7050; J7060; J7620; P9016; Q9963; A4315